=== PATIENT | female | born 1995 | race Caucasian/White ===

== ENCOUNTER 2016-10-15 21:46 | Emergency (ER) | payer OTHER ==
[2016-10-16] MEDS ORDERED: AZITHROMYCIN 250 MG TABLET ONE (00:21)
--- NOTE | 2016-10-16 07:50 | RAD ---
CHEST - 2 VIEWS COMPARISON: Chest 2 views, 09/15/2011 HISTORY: Cough and congestion since 10/01/2016 FINDINGS: Views: Frontal and lateral chest Lungs: Normal Heart and vessels: Normal Trachea and bronchi: Normal Mediastinum and mariam: Normal Costophrenic sulci: Normal Chest wall and bones: Normal. Upper abdomen: Normal. IMPRESSION: Negative 2 view chest.
== END 2016-10-16 00:33 | disposition home or self-care (01) ==
LOC: ED 21:46
DX: J20.9 Acute bronchitis, unspecified (principal); J45.909 Unspecified asthma, uncomplicated
CPT/HCPCS: 71020; 99283 ×2; A9270